=== PATIENT | female | born 2000 | race Caucasian/White ===

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

== ENCOUNTER 2020-12-27 18:41 | Emergency (ER) | payer MEDICAID, OTHER ==
--- NOTE | 2020-12-27 18:52 | EDM.PDOC ---
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 Control Implant 1 dose IMPLANT ASDIRECTED 07/16/19 [History] Past Medical History Genitourinary History: Reports: Other (See Below) Other Genitourinary History: UTI as young child. 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 Musculoskeletal History: Reports: Fracture Other Musculoskeletal History: hx fx L foot Neurological History: Reports: Concussion, Migraines - Past Surgical History HEENT Surgical History: Reports: Tonsillectomy Social & Family History - Family History Family Medical History: No Pertinent Family History - Caffeine Use Caffeine Use: Reports: Coffee, Soda - Living Situation & Occupation Occupation: Unemployed Review of Systems - Review of Systems Review Of Systems: See Below Constitutional: Reports: No Symptoms Eyes: Reports: No Symptoms Ears: Reports: No Symptoms Nose: Reports: No Symptoms Mouth/Throat: Reports: No Symptoms Respiratory: Reports: No Symptoms Cardiovascular: Reports: No Symptoms GI/Abdominal: Reports: No Symptoms Genitourinary: Reports: No Symptoms Musculoskeletal: Reports: Other (ankle pain) Skin: Reports: No Symptoms Neurological: Reports: No Symptoms Psychiatric: Reports: No Symptoms ED EXAM, GENERAL - Physical Exam Exam: See Below Exam Limited By: No Limitations General Appearance: Alert, WD/WN, No Apparent Distress Extremities: Other (mild tender just above the R lat malleolus with 1+ swell of anterior/lateral joint line, no ecchymosis, foot NT) Course - Vital Signs Last Recorded V/S: Last Vital Signs Temp 37.7 C 12/27/20 18:41 Pulse 98 12/27/20 18:41 Resp 20 12/27/20 18:41 BP 124/83 12/27/20 18:41 Pulse Ox 98 12/27/20 18:41 - Orders/Labs/Meds Orders: Active Orders 24 hr Category Date Time Status Ankle Min 3V Rt [CR] Stat Exams 12/27/20 18:50 Ordered - Re-Assessments/Exams Free Text/Narrative Re-Assessment/Exam: 12/27/20 20:17 walked without difficulty into ED, should do okay with ankle splint, will have her rest ankle tomorrow Departure - Departure Time of Disposition: 20:13 Disposition: Home, Self-Care 01 Condition: Good Clinical Impression: Right ankle sprain - Discharge Information *PRESCRIPTION DRUG MONITORING PROGRAM REVIEWED*: Not Applicable *COPY OF PRESCRIPTION DRUG MONITORING REPORT IN PATIENT AMBREEN: Not Applicable Instructions: Ankle Sprain Forms: ED Return to Work/School Form Additional Instructions: Use ice for 10 minutes 4 times a day for 2 days. Use ankle splint when out of bed for 2-3 weeks. For pain and inflammation and swelling, take ibuprofen 200 mg 4 tabs and acetaminophen 500 mg 2 tabs 3 times a day for 1 week, longer if needed. No work tomorrow. See your doctor in 3-4 days for further recommendations. Sepsis Event Note (ED) - Focused Exam Vital Signs: Vital Signs Temp Pulse Resp BP Pulse Ox 12/27/20 18:41 37.7 C 98 20 124/83 98 - My Orders Last 24 Hours: My Active Orders 12/27/20 18:50 Ankle Min 3V Rt [CR] Stat - Assessment/Plan Last 24 Hours: My Active Orders 12/27/20 18:50 Ankle Min 3V Rt [CR] Stat
[2020-12-27 21:38] VITALS: BP 139/75; PULSE 84
--- NOTE | 2020-12-28 09:41 | CR ---
INDICATION: Rolled right ankle, pain laterally. RIGHT ANKLE: Three views of the right ankle were obtained 12/28/20 and compared with right foot of 10/27/19. No significant soft tissue swelling was noted. The dome of the talus is intact. Joint space appears to be symmetrical at the ankle mortise. An acute fracture or dislocation was not identified. IMPRESSION: 1. Normal right ankle. 2. If symptoms persist - if occult fracture site is suspected clinically, reexamination in 10 to 14 days may be helpful. DLD
== END 2020-12-27 20:39 | disposition home or self-care (01) ==
LOC: FB.ED 18:41
DX: S93.401A Sprain of unspecified ligament of right ankle, initial encounter (principal); X50.1XXA Overexertion from prolonged static or awkward postures, initial encounter
CPT/HCPCS: 73610-RT; 99283-25

== ENCOUNTER 2021-09-09 16:21 | Emergency (ER) | payer MEDICAID, OTHER ==
[2021-09-09] MEDS ORDERED: Ibuprofen 600 MG Tab PO ONE (16:44)
[2021-09-09 16:49] VITALS: BP 128/74; PULSE 64
== END 2021-09-09 17:40 | disposition home or self-care (01) ==
LOC: FB.ED 16:21
DX: S60.221A Contusion of right hand, initial encounter (principal); Z72.0 Tobacco use; W22.09XA Striking against other stationary object, initial encounter
CPT/HCPCS: 73130-RT; 99283; 99283-25

== ENCOUNTER 2021-10-07 04:20 | Emergency (ER) | payer MEDICAID ==
[2021-10-07 04:54] VITALS: BP 123/83; PULSE 90
[2021-10-07] MEDS ORDERED: Methylergonovine 0.2 MG/1 ML Amp IM ONE (05:15)
== END 2021-10-07 05:30 | disposition home or self-care (01) ==
LOC: FB.ED 04:20
DX: N92.1 Excessive and frequent menstruation with irregular cycle (principal); Z72.0 Tobacco use
CPT/HCPCS: 36415; 81025; 85025; 96372; 99284; J2210; 99282

== ENCOUNTER 2022-02-08 19:54 | Emergency (ER) | payer MEDICAID ==
[2022-02-08 23:21] VITALS: BP 118/74; PULSE 116
== END 2022-02-08 20:25 | disposition home or self-care (01) ==
LOC: FB.ED 19:54
DX: S81.811A Laceration without foreign body, right lower leg, initial encounter (principal); W26.8XXA Contact with other sharp object(s), not elsewhere classified, initial encounter
CPT/HCPCS: 12002; 99282

== ENCOUNTER 2024-09-20 21:59 | Emergency (ER) | payer MEDICAID ==
[2024-09-20] MEDS ORDERED: traMADol 50 MG Tab PO ONE (22:00)
[2024-09-20 23:24] VITALS: PULSE 115
[2024-09-21 00:34] VITALS: BP 128/80
== END 2024-09-20 23:57 | disposition home or self-care (01) ==
LOC: FB.ED 21:59
DX: S92.324A Nondisplaced fracture of second metatarsal bone, right foot, initial encounter for closed fracture (principal); S92.331A Displaced fracture of third metatarsal bone, right foot, initial encounter for closed fracture; S92.341A Displaced fracture of fourth metatarsal bone, right foot, initial encounter for closed fracture; Y93.72 Activity, wrestling
CPT/HCPCS: 73630; 99283; A9270